=== PATIENT | female | born 1955 | race Caucasian/White ===

== ENCOUNTER → 2016-07-01 | Outpatient (CLI) | payer MEDICARE, BC ==
[~2016-07-01] MED LIST: AMITIZA24 MCG PO; ASPIRIN81 MG PO; BELSOMRA10 MG PO; CARISOPRODOL350 MG PO; CELEBREX100 MG PO; CYMBALTA30 MG PO; DILAUDID4 MG PO; DUODERM1 EACH TOP; FERROUS SULFAT325 M1 PO; IMITREX100 MG PO; MELATONIN1 MG PO; METHADONE HCL5 MG PO; MIRALAX17 GM PO; NEURONTIN400 MG PO; NEURONTIN600 MG PO; PREDNISONE5 MG PO; SENEXON8.6 MG PO; TRAZODONE HCL100 MG PO; VITAMIN D35000 UNIT PO; XANAX1 MG PO; ZANTAC 7575 MG PO; ZANTAC300 MG PO; ZOFRAN4 MG PO
== END | disposition short-term general hospital (02) ==
LOC: CLUROL 14:50
DX: R32 Unspecified urinary incontinence (principal); L98.429 Non-pressure chronic ulcer of back with unspecified severity

== ENCOUNTER 2016-09-02 18:02 | Emergency (ER) | payer MEDICARE, BC ==
[~2016-09-02] VITALS: Ht 167.6 cm; Wt 109.8 kg
[2016-09-03] MEDS ORDERED: XANAX1 MG PO (01:00)
[2016-09-03] MEDS ORDERED: AMITIZA24 MCG PO (01:04)
[2016-09-03] MEDS ORDERED: ASPIRIN81 MG PO (01:04)
[2016-09-03] MEDS ORDERED: BELSOMRA10 MG PO (01:06)
[2016-09-03] MEDS ORDERED: CARISOPRODOL350 MG PO (01:07)
[2016-09-03] MEDS ORDERED: CELEBREX100 MG PO (01:07)
[2016-09-03] MEDS ORDERED: CYMBALTA30 MG PO (01:08)
[2016-09-03] MEDS ORDERED: DILAUDID4 MG PO (01:08)
[2016-09-03] MEDS ORDERED: DUODERM1 EACH TOP (01:09)
[2016-09-03] MEDS ORDERED: FERROUS SULFAT325 M1 PO (01:10)
[2016-09-03] MEDS ORDERED: NEURONTIN400 MG PO (01:11)
[2016-09-03] MEDS ORDERED: METHADONE HCL5 MG PO (01:12)
[2016-09-03] MEDS ORDERED: ZOFRAN4 MG PO (01:13)
[2016-09-03] MEDS ORDERED: PREDNISONE5 MG PO (01:13)
[2016-09-03] MEDS ORDERED: IMITREX100 MG PO (01:14)
[2016-09-03] MEDS ORDERED: ZANTAC 7575 MG PO (01:20)
[2016-09-03] MEDS ORDERED: TRAZODONE HCL100 MG PO (01:20)
[2016-12-01] MEDS ORDERED: NEURONTIN600 MG PO (16:50)
[2016-12-01] MEDS ORDERED: MELATONIN1 MG PO (16:52)
[2016-12-01] MEDS ORDERED: MIRALAX17 GM PO (16:53)
[2016-12-01] MEDS ORDERED: SENEXON8.6 MG PO (16:56)
[2016-12-01] MEDS ORDERED: IMITREX100 MG PO (16:56)
[2016-12-01] MEDS ORDERED: VITAMIN D35000 UNIT PO (16:59)
[2016-12-01] MEDS ORDERED: ZANTAC300 MG PO (17:01)
== END 2016-09-02 21:13 | disposition short-term general hospital (02) ==
LOC: ER 18:02
PROC: 2W3QX1Z Immobilization of Right Lower Leg using Splint (ICD-10-PCS; principal; 2016-09-02)
PROC: 2W3DX1Z Immobilization of Left Lower Arm using Splint (ICD-10-PCS; 2016-09-02)
DX: S52.502A Unspecified fracture of the lower end of left radius, initial encounter for closed fracture (principal); M97.11XA Periprosthetic fracture around internal prosthetic right knee joint, initial encounter; M48.10 Ankylosing hyperostosis [Forestier], site unspecified; E11.9 Type 2 diabetes mellitus without complications; F41.9 Anxiety disorder, unspecified; K21.9 Gastro-esophageal reflux disease without esophagitis; F32.9 Major depressive disorder, single episode, unspecified; Z90.49 Acquired absence of other specified parts of digestive tract; Z98.890 Other specified postprocedural states; Z98.1 Arthrodesis status; Z98.84 Bariatric surgery status; Z96.653 Presence of artificial knee joint, bilateral; W01.0XXA Fall on same level from slipping, tripping and stumbling without subsequent striking against object, initial encounter
CPT/HCPCS: 73552-RT; J1170; J2405